=== PATIENT | female | born 1960 | race Caucasian/White ===

== ENCOUNTER 2017-11-14 23:45 | Observation (INO) | payer OTHER ==
[~2017-11-14] VITALS: Ht 182.9 cm; Wt 75.0 kg
[2017-11-15 00:08] LABS: HEMATOCRIT 35.1 % (36.0-46.0); HEMOGLOBIN 11.1 G/DL (11.9-15.5); MCH 30.1 PG (29.0-34.0); MCHC 31.6 G/DL (30.0-36.0); MCV 95.1 FL (83-99); PLATELET COUNT 116 K/uL (156-360); RBC DIS.WIDTH-CV 14.5 % (11.8-14.6); RBC DIS.WIDTH-SD 50.9 % (39-53); RED BLOOD COUNT 3.69 M/uL (3.80-5.20)
[2017-11-15 00:26] LABS: CHLORIDE 111 mEq/L (99-109); SODIUM 142 mEq/L (136-147)
[2017-11-15 00:28] LABS: GLUCOSE 86 mg/dL (70-99)
[2017-11-15 00:29] LABS: TROP-I INTERPRETATION NEGATIVE; TROPONIN-I 0.02 ng/mL (0.0-0.30)
[2017-11-15 00:31] LABS: CREATININE 5.9 mg/dL (0.6-1.3); GFR ESTIMATE (CALCULATED) 8 mL/min/
[2017-11-15 00:32] LABS: UREA NITROGEN (BUN) 56 mg/dL (9-23)
[2017-11-15 01:02] LABS: POTASSIUM 6.9 mEq/L (3.7-5.4)
[2017-11-15] MEDS ORDERED: PANTOPRAZOLE SO40 MG PO (01:16)
[2017-11-15] MEDS ORDERED: LISINOPRIL20 MG PO (01:17)
[2017-11-15] MEDS ORDERED: NITROGLYCERIN0.4 MG SL (01:18)
[2017-11-15] MEDS ORDERED: ENDOCET 5-3251 EACH PO (01:18)
[2017-11-15] MEDS ORDERED: LABETALOL HCL100 MG PO (01:19)
[2017-11-15] MEDS ORDERED: HYDROXYCHLOROQ200 MG PO (01:20)
[2017-11-15] MEDS ORDERED: AMLODIPINE BESY10 MG PO (01:21)
[2017-11-15] MEDS ORDERED: IMDUR30 MG PO (01:22)
[2017-11-15] MEDS ORDERED: PROAIR HFA8.5 GM IH (01:23)
[2017-11-15] MEDS ORDERED: ATORVASTATIN CA80 MG PO (01:24)
[2017-11-15] MEDS ORDERED: BRILINTA90 MG PO (01:24)
[2017-11-15] MEDS ORDERED: LORAZEPAM0.5 MG PO (01:27)
[2017-11-15] MEDS ORDERED: BREO ELLIPTA I1 EACH IH (01:29)
[2017-11-15] MEDS ORDERED: SYMBICORT60 INHALAT IH (01:30)
[2017-11-15] MEDS ORDERED: MELATONIN3 MG PO (01:32)
[2017-11-15 04:53] VITALS: BP 179/83
[2017-11-15 06:02] LABS: TROP-I INTERPRETATION NEGATIVE; TROPONIN-I 0.03 ng/mL (0.0-0.30)
[2017-11-15 07:19] VITALS: BP 174/83
[2017-11-15 09:17] LABS: BASOPHIL (%) 0.9 % (0-1); EOSINOPHIL (%) 0 % (0-5); HEMATOCRIT 30.1 % (36.0-46.0); HEMOGLOBIN 9.2 G/DL (11.9-15.5); IMMATURE GRANULOCYTE (%) 0.5 % (0.0-0.7); LYMPHOCYTE (%) 10.6 % (15-42); LYMPHOCYTE COUNT 0.5 K/uL (1.0-2.8); MCH 29.4 PG (29.0-34.0); MCHC 30.6 G/DL (30.0-36.0); MCV 96.2 FL (83-99); MONOCYTE (%) 11.8 % (3-12); MONOCYTE COUNT 0.5 K/uL (0-0.8); NEUTROPHIL (%) 76.2 % (45-76); NEUTROPHIL COUNT 3.2 K/uL (1.8-6.4); PLATELET COUNT 117 K/uL (156-360); RBC DIS.WIDTH-CV 14.6 % (11.8-14.6); RBC DIS.WIDTH-SD 51.3 % (39-53); RED BLOOD COUNT 3.13 M/uL (3.80-5.20); WHITE BLOOD COUNT 4.3 K/uL (4.1-10.2)
[2017-11-15 09:35] LABS: ALBUMIN 2.2 G/DL (3.2-4.8); CHLORIDE 111 MEQ/L (99-109); CREATININE 5.5 MG/DL (0.6-1.3); GFR ESTIMATE (CALCULATED) 8 mL/min/; GLUCOSE 83 mg/dL (70-99); PHOSPHORUS 6.7 mg/dL (2.5-4.9); SODIUM 142 MEQ/L (136-147); UREA NITROGEN (BUN) 53 mg/dL (9-23)
[2017-11-15 14:00] VITALS: BP 153/71
[2017-11-15 15:40] VITALS: BP 141/78
[2017-11-15 18:36] LABS: TROP-I INTERPRETATION NEGATIVE; TROPONIN-I 0.03 ng/mL (0.0-0.30)
[2017-11-15 20:04] VITALS: BP 178/86
[2017-11-16] VITALS (7 sets, daily range): BP systolic 160–186; BP diastolic 72–84
[2017-11-16 05:36] LABS: HEMATOCRIT 33.2 % (36.0-46.0); HEMOGLOBIN 10.4 G/DL (11.9-15.5); MCH 30.1 PG (29.0-34.0); MCHC 31.3 G/DL (30.0-36.0); PLATELET COUNT 118 K/uL (156-360); RBC DIS.WIDTH-CV 14.1 % (11.8-14.6); RBC DIS.WIDTH-SD 49.6 % (39-53); RED BLOOD COUNT 3.46 M/uL (3.80-5.20); WHITE BLOOD COUNT 3.1 K/uL (4.1-10.2)
[2017-11-16 05:58] LABS: CHLORIDE 104 MEQ/L (99-109); GLUCOSE 67 mg/dL (70-99); SODIUM 138 MEQ/L (136-147)
[2017-11-16 06:00] LABS: CREATININE 2.6 MG/DL (0.6-1.3); GFR ESTIMATE (CALCULATED) 20 mL/min/; POTASSIUM 4.2 MEQ/L (3.7-5.4); UREA NITROGEN (BUN) 15 mg/dL (9-23)
[2017-11-16 10:40] LABS: APPEARANCE TURBID ((CLEAR)); BILIRUBIN NEGATIVE; BLOOD SMALL; COLOR AMBER ((YELLOW)); GLUCOSE (STRIP) NEGATIVE; KETONES NEGATIVE; LEUKOCYTES MODERATE; NITRITE NEGATIVE; PROTEIN (STRIP) 100; SPECIFIC GRAVITY 1.019 (1.000-1.030); UROBILINOGEN 0.2 MG/DL (0.2-1.0)
[2017-11-16 11:28] LABS: BACTERIA 3+ /HPF; EPITHELIAL CELLS 1+ /HPF; MUCUS NONE SEEN /LPF; UCUL ADDED? YES; WHITE BLOOD CELLS TNTC /HPF (0-5)
[2017-11-17] VITALS (7 sets, daily range): BP systolic 159–190; BP diastolic 75–81
[2017-11-17 08:57] LABS: BASOPHIL (%) 1.2 % (0-1); EOSINOPHIL (%) 0 % (0-5); HEMATOCRIT 30.8 % (36.0-46.0); HEMOGLOBIN 9.5 G/DL (11.9-15.5); IMMATURE GRANULOCYTE (%) 0.3 % (0.0-0.7); LYMPHOCYTE (%) 16.4 % (15-42); LYMPHOCYTE COUNT 0.6 K/uL (1.0-2.8); MCH 29.1 PG (29.0-34.0); MCHC 30.8 G/DL (30.0-36.0); MCV 94.2 FL (83-99); MONOCYTE (%) 10.4 % (3-12); MONOCYTE COUNT 0.4 K/uL (0-0.8); NEUTROPHIL (%) 71.7 % (45-76); NEUTROPHIL COUNT 2.5 K/uL (1.8-6.4); PLATELET COUNT 125 K/uL (156-360); RBC DIS.WIDTH-CV 13.6 % (11.8-14.6); RBC DIS.WIDTH-SD 47.1 % (39-53); RED BLOOD COUNT 3.27 M/uL (3.80-5.20); WHITE BLOOD COUNT 3.5 K/uL (4.1-10.2)
[2017-11-17 09:15] LABS: ALBUMIN 2.2 G/DL (3.2-4.8); CHLORIDE 103 MEQ/L (99-109); GFR ESTIMATE (CALCULATED) 14 mL/min/; GLUCOSE 79 mg/dL (70-99); PHOSPHORUS 5.1 mg/dL (2.5-4.9); POTASSIUM 4.2 MEQ/L (3.7-5.4); SODIUM 137 MEQ/L (136-147)
[2017-11-17 09:28] LABS: CREATININE 3.6 MG/DL (0.6-1.3); UREA NITROGEN (BUN) 26 mg/dL (9-23)
[2017-11-17] MEDS ORDERED: LABETALOL HCL200 MG PO (17:00)
[2017-11-17] MEDS ORDERED: IMDUR60 MG PO (17:00)
[2017-11-17] MEDS ORDERED: CIPRO250 MG PO (17:01)
[2017-11-18 03:57] VITALS: BP 171/77
[2017-11-18 07:27] VITALS: BP 168/75
[2017-11-18 10:43] VITALS: BP 145/65
[2017-11-18] MEDS ORDERED: CALCIUM 600 +1 EAC2 PO (13:43)
== END 2017-11-18 16:28 ==
LOC: EME 23:45 → 5WEST 11-15 03:25 → EDOF 11-15 03:25 → ENRESERV 11-15 03:26 → 5WEST 11-15 04:35
PROVIDERS: Emergency Medicine; Hospitalist; Internal Medicine Nephrology
PROC: 5A1D70Z Performance of Urinary Filtration, Intermittent, Less than 6 Hours Per Day (ICD-10-PCS; principal; 2017-11-15)
DX: E87.5 Hyperkalemia (principal); I13.2 Hypertensive heart and chronic kidney disease with heart failure and with stage 5 chronic kidney disease, or end stage renal disease; I50.9 Heart failure, unspecified; N18.6 End stage renal disease; E11.22 Type 2 diabetes mellitus with diabetic chronic kidney disease; Z99.2 Dependence on renal dialysis; N17.9 Acute kidney failure, unspecified; M85.80 Other specified disorders of bone density and structure, unspecified site; S82.832A Other fracture of upper and lower end of left fibula, initial encounter for closed fracture; E11.40 Type 2 diabetes mellitus with diabetic neuropathy, unspecified; M17.12 Unilateral primary osteoarthritis, left knee; R26.2 Difficulty in walking, not elsewhere classified; M25.562 Pain in left knee; Z74.01 Bed confinement status; D63.1 Anemia in chronic kidney disease; E83.51 Hypocalcemia; M06.9 Rheumatoid arthritis, unspecified; I25.10 Atherosclerotic heart disease of native coronary artery without angina pectoris; Z95.5 Presence of coronary angioplasty implant and graft; I25.2 Old myocardial infarction; I73.00 Raynaud's syndrome without gangrene; M32.9 Systemic lupus erythematosus, unspecified; I48.91 Unspecified atrial fibrillation; J44.9 Chronic obstructive pulmonary disease, unspecified; Z90.49 Acquired absence of other specified parts of digestive tract; Z96.659 Presence of unspecified artificial knee joint; Z82.49 Family history of ischemic heart disease and other diseases of the circulatory system; Z83.3 Family history of diabetes mellitus; Z91.041 Radiographic dye allergy status; Z88.5 Allergy status to narcotic agent; Z79.82 Long term (current) use of aspirin
CPT/HCPCS: 73590; 73630; 80048; 80069; 81003; 84484; 85025; 85027; 87086; 93005; 94640; 94640 76; 94644; 94799; 99202; 99281; 99284; G0378; J0360; J0696; J1644; J2405